=== PATIENT | male | born 1940 | race Caucasian/White ===

== ENCOUNTER 2020-05-06 14:20 | Emergency (ER) | payer OTHER ==
[2020-05-06] MEDS ORDERED: Sodium Chloride 0.9% 1000 ML 1,000 ML IV STA (14:33)
[2020-05-06 14:36] VITALS: O2SAT 100
[2020-05-06] MEDS ORDERED: Sodium Chloride 0.9% 1000 ML 1,000 ML ONE (14:42)
[2020-05-06] MEDS ORDERED: MORPHINE SULFATE 4 MG INJ IV ONE (14:59)
[2020-05-06] MEDS ORDERED: MORPHINE SULFATE 4 MG INJ ONE (15:01)
--- NOTE | 2020-05-06 15:08 | XRAY ---
Indication: Chest pain 3 days. Comparison: None Portable chest demonstrates normal heart and lungs. Bony thorax intact with mild dextroscoliosis.
[2020-05-06 15:21] LABS: Absolute Neutrophil Ct (ANC) 5.21 (1.4-6.9); BASOPHIL % 0.2 % (0.0-0.4); Basophil (Absolute #) 0.02 (0-0.4); Eosinophil % 2.2 % (0.00-5.0); Hematocrit 42.1 % (42-50); Hemoglobin 13.9 gm/dl (12.5-18.0); Lymphocyte (Absolute #) 2.85 (1.0-4.6); Lymphocytes % 31.6 % (24.0-44.0); Mean Cell Volume 91.1 fl (78-100); Mean Corpuscular Hemoglobin 30.1 pg (26-32); Mean Platelet Volume 10.8 fl (7.5-11.0); Monocyte (Absolute #) 0.75 (0.0-1.3); Monocytes % 8.3 % (0.0-12.0); Neutrophil % 57.7 % (36.0-66.0); Platelet Count 232 K/mm3 (150-450); Red Blood Count 4.62 M/mm3 (4.1-5.6); Red Cell Distribution Width 12.3 % (11.5-14.0)
--- NOTE | 2020-05-06 15:22 | ERPHSYRPT ---
- History of Present Illness Time Seen by Provider: 05/06/20 14:35 Historian: patient Exam Limitations: no limitations Patient Subjective Stated Complaint: Pt states began having chest pain on 05/04/20. Pain was relieved yesterday and returned today radiating down left ar m. Pain is intermittent. Pt denies n/v/d. Denies fever or cough. States he was notified today that he played cards with someone on 05/02/20 that tested Covid positive on 05/04/20. Triage Nursing Assessment: Pt skin pink, warm, dry. Gait steady. Respirations non-labored. Strong, regular radial pulse. Physician History: Patient is an 79-year-old white male who presents with chest pain since Saturday he had some improvement in his pain which was on and off from Saturday until today the pain came back was much worse radiates to the left arm no shortness of breath nausea vomiting diaphoresis he also has some risk factors which include hypertension and hyperlipidemia pain-free upon admission to the ER Timing/Duration: day(s) Activities at Onset: none Quality: pressure, stabbing Location: substernal Chest Pain Radiation: arm (L) Severity of Pain-Max: severe Severity of Pain-Current: severe Modifying Factors: Improves With: nothing Associated Symptoms: denies symptoms Prior Chest Pain/Cardiac Workup: heart attack Nitro Today/Relief: 0.4 mg x 1 Aspirin Treatment Today: 81 mg x 3, provided at home (Took 681 mg at home.) Allergies/Adverse Reactions: No Known Drug Allergies Allergy (Unverified 05/06/20 14:37) Home Medications: Levothyroxine Sodium 75 Mcg [Synthroid 75 Mcg] 75 mcg PO DAILY 05/06/20 [History] Travel Risk - International Travel Have you traveled outside of the country in past 3 weeks: No - Coronavirus Screening Are you exhibiting any of the following symptoms?: No Close contact with a COVID-19 positive Pt in past 14-21 Days: Yes - Review of Systems Constitutional: No Fever, No Chills Eyes: No Symptoms Ears, Nose, & Throat: No Symptoms Respiratory: No Cough, No Dyspnea Cardiac: Chest Pain, No Edema, No Syncope Abdominal/Gastrointestinal: No Abdominal Pain, No Nausea, No Vomiting, No Diarrhea Genitourinary Symptoms: No Dysuria Musculoskeletal: No Back Pain, No Neck Pain Skin: No Rash Neurological: No Dizziness, No Focal Weakness, No Sensory Changes Psychological: No Symptoms Endocrine: No Symptoms All Other Systems: Reviewed and Negative - Past Medical History Pertinent Past Medical History: Yes Cardiac History: Myocardial Infarction ([place]) Endocrine Medical History: Hypothyroidism - Past Surgical History Past Surgical History: Yes Musculoskeletal: Orthopedic Surgery Other Surgical History: Melanoma removal - Social History Smoking Status: Never smoker Drug Use: none Patient Lives Alone: Yes - Nursing Vital Signs Nursing Vital Signs: Initial Vital Signs Temperature 97.6 F 05/06/20 14:21 Pulse Rate 62 05/06/20 14:21 Respiratory Rate 16 05/06/20 14:21 Blood Pressure 196/116 05/06/20 14:21 O2 Sat by Pulse Oximetry 100 05/06/20 14:21 Pain Scale Pain Intensity 10 - Physical Exam General Appearance: moderate distress, alert Eye Exam: PERRL/EOMI, eyes nml inspection Ears, Nose, Throat Exam: normal ENT inspection, moist mucous membranes Neck Exam: normal inspection, non-tender, supple, full range of motion Respiratory Exam: normal breath sounds, lungs clear, No respiratory distress Cardiovascular Exam: regular rate/rhythm, normal heart sounds Gastrointestinal/Abdomen Exam: soft, No tenderness, No mass Back Exam: normal inspection, No CVA tenderness, No vertebral tenderness Extremity Exam: normal inspection, normal range of motion Neurologic Exam: alert, oriented x 3, cooperative, normal mood/affect, sensation nml, No motor deficits Skin Exam: normal color, warm, dry SpO2: 100 - Course Nursing assessment & vital signs reviewed: Yes EKG Interpreted by Me: RATE, Sinus Rhythm, Left [place] Deviation, Right Bundle Branch Block, Other Ordered Tests: Active Orders 24 hr Category Date Time Status EKG-ER Only STAT Care 05/06/20 14:33 Active IV Insertion STAT Care 05/06/20 14:45 Active CHEST 1 VIEW (PORTABLE) Stat Exams 05/06/20 14:33 Completed AMYLASE Stat Lab 05/06/20 14:50 Received CBC W DIFF Stat Lab 05/06/20 14:50 Received CMP Stat Lab 05/06/20 14:50 Received D-DIMER QUANTITATIVE Stat Lab 05/06/20 14:50 Received LIPASE Stat Lab 05/06/20 14:50 Received Lactic Acid Stat Lab 05/06/20 14:33 Completed TROPONIN Q3H Lab 05/06/20 14:50 Received TROPONIN Q3H Lab 05/06/20 17:45 Ordered TROPONIN Q3H Lab 05/06/20 20:45 Ordered TROPONIN Q3H Lab 05/06/20 23:45 Ordered TROPONIN Q3H Lab 05/07/20 02:45 Ordered UA W/RFX UR CULTURE Stat Lab 05/06/20 14:33 Ordered Medication Summary Generic Name Dose Route Start Last Admin Trade Name Freq PRN Reason Stop Dose Admin Sodium Chloride 1,000 mls @ 999 mls/hr 05/06/20 14:33 05/06/20 14:44 Sodium Chloride 0.9% 1000 Ml IV 05/06/20 15:33 999 mls/hr .Q1H1M STA Administration Discontinued Medications Generic Name Dose Route Start Last Admin Trade Name Freq PRN Reason Stop Dose Admin Sodium Chloride Confirm 05/06/20 14:42 Sodium Chloride 0.9% 1000 Ml Administered 05/06/20 14:43 Dose 1,000 mls @ ud .ROUTE .STK-MED ONE Morphine Sulfate 4 mg 05/06/20 14:59 05/06/20 15:09 Morphine Sulfate 4 Mg Inj IV 05/06/20 15:00 4 mg STAT ONE Administration Morphine Sulfate Confirm 05/06/20 15:01 Morphine Sulfate 4 Mg Inj Administered 05/06/20 15:02 Dose 4 mg .ROUTE .STK-MED ONE Lab/Rad Data: Laboratory Results 05/06/20 Range/Units 14:33 Lactic Acid 2.3 H (0.4-2.0) - Progress Progress: improved Air Movement: good Blood Culture(s) Obtained: No Antibiotics given: No - Departure Departure Disposition: Transfer ([facility] Dr. Gauri Corley accepting) Clinical Impression: Inferior [place] Condition: Critical Critical Care Time: Yes Critical Care Time(excluding separately billable procedures): Critical 30-74 mins
[2020-05-06 15:25] VITALS: BP 166/97; PULSE 58
[2020-05-06 15:27] LABS: ALBUMIN 4.5 g/dL (3.5-5.0); ALKALINE PHOSPHATASE 43 U/L (38-126); AMYLASE 50 U/L (30-110); ANION GAP 12.7 MEQ/L (5-15); BLOOD UREA NITROGEN 18 mg/dL (9-20); CHLORIDE 100 mmol/L (98-107); Calcium 9.5 mg/dL (8.4-10.2); Carbon Dioxide 28 mmol/L (22-30); Creatinine 1 1.02 mg/dL (0.66-1.25); EST GLOMERULAR FILTRATION RATE > 60.0 ML/MIN; Glucose 130 mg/dL (74-106); LIPASE 42 U/L (23-300); Potassium 4.4 mmol/L (3.5-5.1); SGOT/AST 35 U/L (17-59); SGPT/ALT 17 U/L (0-50); SODIUM 137 mmol/L (137-145); Total Protein 7.6 g/dL (6.3-8.2)
== END 2020-05-06 15:26 | disposition short-term general hospital (02) ==
LOC: ED 14:20
DX: I21.19 ST elevation (STEMI) myocardial infarction involving other coronary artery of inferior wall (principal); I10 Essential (primary) hypertension; E78.5 Hyperlipidemia, unspecified; E03.9 Hypothyroidism, unspecified
CPT/HCPCS: 36000; 36415; 71045; 80053; 82150; 83605; 83690; 84484; 85025; 85379; 93005; 93041; 96360; 96374; 99285; 99291; J2270

== ENCOUNTER 2021-07-04 17:09 | Emergency (ER) | payer OTHER ==
--- NOTE | 2021-07-04 17:18 | ERPHSYRPT ---
- History of Present Illness Time Seen by Provider: 07/04/21 17:17 Historian: patient Exam Limitations: no limitations Physician History: This is an 80-year-old white male patient of the [facility] in [place] who presents with 2 to 3 days of intermittent pain in his left chest that goes into his left axilla. Today, the pain was constant in his left axilla. However, upon arrival to the emergency department today the pain has completely resolved. He has no chest pain. He is not short of breath. Patient does take Brilinta. In April 2020 patient had a cardiac stent placed. He currently does not have any shortness of breath. There is a history of atrial fibrillation that is chronic and rate controlled. Patient also has a history of hypothyroidism and is taking the levothyroxine medication. Timing/Duration: today Activities at Onset: none Quality: aching (Left axilla) Location: other (Left axilla) Chest Pain Radiation: no radiation Severity of Pain-Max: mild (To moderate) Severity of Pain-Current: none Modifying Factors: Improves With: nothing Associated Symptoms: denies symptoms Prior Chest Pain/Cardiac Workup: cardiac cath, echocardiography, heart attack Nitro Today/Relief: no nitro taken today Aspirin Treatment Today: 81 mg x 4, provided by ED Allergies/Adverse Reactions: No Known Drug Allergies Allergy (Verified 07/04/21 17:19) Home Medications: Levothyroxine Sodium 75 Mcg [Synthroid 75 Mcg] 75 mcg PO DAILY 05/06/20 [History] Atorvastatin Calcium [Lipitor] 1 dose PO HS 07/04/21 [History] Ticagrelor [Brilinta] 90 mg PO BID 07/04/21 [History] Travel Risk - International Travel Have you traveled outside of the country in past 3 weeks: No - Coronavirus Screening Are you exhibiting any of the following symptoms?: No Close contact with a COVID-19 positive Pt in past 14-21 Days: No - Review of Systems Constitutional: No Symptoms Eyes: No Symptoms Ears, Nose, & Throat: No Symptoms Respiratory: No Symptoms Cardiac: Chest Pain (Left axillary) Abdominal/Gastrointestinal: No Symptoms Genitourinary Symptoms: No Symptoms Musculoskeletal: No Symptoms Skin: No Symptoms Neurological: No Symptoms Psychological: No Symptoms Endocrine: No Symptoms Hematologic/Lymphatic: No Symptoms Immunological/Allergic: No Symptoms All Other Systems: Reviewed and Negative - Past Medical History Pertinent Past Medical History: Yes Cardiac History: Myocardial Infarction ([place]) Endocrine Medical History: Hypothyroidism - Past Surgical History Past Surgical History: Yes Musculoskeletal: Orthopedic Surgery Other Surgical History: Melanoma removal - Social History Smoking Status: Never smoker Drug Use: none Patient Lives Alone: Yes - Nursing Vital Signs Nursing Vital Signs: Initial Vital Signs Temperature 98.1 F 07/04/21 17:10 Pulse Rate 89 07/04/21 17:10 Respiratory Rate 18 07/04/21 17:10 Blood Pressure 156/99 07/04/21 17:10 O2 Sat by Pulse Oximetry 99 07/04/21 17:10 Pain Scale Pain Intensity 0 - Physical Exam General Appearance: no apparent distress, alert, anxiety Eye Exam: PERRL/EOMI, eyes nml inspection Ears, Nose, Throat Exam: normal ENT inspection, moist mucous membranes Neck Exam: normal inspection, non-tender, supple, full range of motion Respiratory Exam: normal breath sounds, lungs clear, airway intact, No chest tenderness, No respiratory distress Cardiovascular Exam: irregular Gastrointestinal/Abdomen Exam: soft, normal bowel sounds, No tenderness Rectal Exam: not done, No tenderness Back Exam: normal inspection, normal range of motion, No vertebral tenderness Extremity Exam: normal inspection, normal range of motion, pelvis stable Neurologic Exam: alert, oriented x 3, cooperative, deputy k 9 II-XII nml as tested, normal mood/affect, nml cerebellar function, nml station & gait, sensation nml Skin Exam: normal color, warm Lymphatic Exam: No adenopathy SpO2 Interpretation: normal SpO2: 99 O2 Delivery: Room Air - Course Nursing assessment & vital signs reviewed: Yes EKG Interpreted by Me: RATE (87), A-fib, LAFB, Right Bundle Branch Block, Other (No acute ischemic changes on today's EKG. The prolonged [place] interval that was present on the EKG in April 2020 is no longer present. Otherwise, the EKG shows no significant change.) Ordered Tests: Active Orders 24 hr Category Date Time Status Evaluation Specialist STAT Care 07/04/21 17:25 Active EKG-ER Only STAT Care 07/04/21 17:25 Active IV Insertion STAT Care 07/04/21 17:25 Active CHEST 1 VIEW (PORTABLE) Stat Exams 07/04/21 18:23 Taken CBC W DIFF Stat Lab 07/04/21 17:30 Completed CMP Stat Lab 07/04/21 17:30 Completed D-DIMER QUANTITATIVE Stat Lab 07/04/21 17:30 Completed NT PRO BNP Stat Lab 07/04/21 17:30 Completed PROTIME WITH INR Stat Lab 07/04/21 17:30 Completed TROPONIN Q3H Lab 07/04/21 17:30 Completed TROPONIN Q3H Lab 07/04/21 19:30 Received TROPONIN Q3H Lab 07/04/21 23:30 Ordered TROPONIN Q3H Lab 07/05/21 02:30 Ordered TROPONIN Q3H Lab 07/05/21 05:30 Ordered Medication Summary Discontinued Medications Generic Name Dose Route Start Last Admin Trade Name Jocelin PRN Reason Stop Dose Admin Aspirin 324 mg 07/04/21 17:25 07/04/21 17:30 Aspirin 81 Mg Tab.Chew PO 07/04/21 17:26 243 mg STAT ONE Administration Aspirin Confirm 07/04/21 17:29 Aspirin 81 Mg Tab.Chew Administered 07/04/21 17:30 Dose 243 mg .ROUTE [email or web address] ONE Lab/Rad Data: Laboratory Result Diagrams 07/04/21 17:30 07/04/21 17:30 Laboratory Results 07/04/21 07/04/21 07/04/21 Range/Units 17:30 17:30 17:30 WBC (4.0-10.5) K/mm3 RBC (4.1-5.6) M/mm3 Hgb (12.5-18.0) gm/dl Hct (42-50) % MCV (78-100) fl MCH (26-32) pg MCHC (32-36) g/dl RDW (11.5-14.0) % Plt Count (150-450) K/mm3 MPV (7.5-11.0) fl Gran % (36.0-66.0) % Eos # (Auto) (0-0.5) Absolute Lymphs (auto) (1.0-4.6) Absolute Monos (auto) (0.0-1.3) Lymphocytes % (24.0-44.0) % Monocytes % (0.0-12.0) % Eosinophils % (0.00-5.0) % Basophils % (0.0-0.4) % Absolute Granulocytes (1.4-6.9) Basophils # (0-0.4) PT 12.6 H (9.4-12.5) SECONDS INR 1.07 (0.8-3.0) D-Dimer 295 (215-500) ng/mL Sodium 139 (137-145) mmol/L Potassium 4.5 (3.5-5.1) mmol/L Chloride 107 (98-107) mmol/L Carbon Dioxide 22 (22-30) mmol/L Anion Gap 14.9 (5-15) MEQ/L BUN 20 (9-20) mg/dL Creatinine 1.05 (0.66-1.25) mg/dL Estimated GFR > 60.0 ML/MIN Glucose 143 H (74-106) mg/dL Calcium 9.5 (8.4-10.2) mg/dL Total Bilirubin 0.80 (0.2-1.3) mg/dL AST 23 (17-59) U/L ALT 17 (0-50) U/L Alkaline Phosphatase 60 (38-126) U/L Troponin I 0.056 H* (0.000-0.034) ng/mL NT-Pro-B Natriuret Pep 1390 (0-1800) pg/mL Serum Total Protein 7.3 (6.3-8.2) g/dL Albumin 4.5 (3.5-5.0) g/dL 07/04/21 Range/Units 17:30 WBC 8.1 (4.0-10.5) K/mm3 RBC 4.49 (4.1-5.6) M/mm3 Hgb 13.7 (12.5-18.0) gm/dl Hct 41.7 L (42-50) % MCV 92.9 (78-100) fl MCH 30.5 (26-32) pg MCHC 32.9 (32-36) g/dl RDW 13.0 (11.5-14.0) % Plt Count 236 (150-450) K/mm3 MPV 11.0 (7.5-11.0) fl Gran % 65.7 (36.0-66.0) % Eos # (Auto) 0.20 (0-0.5) Absolute Lymphs (auto) 1.89 (1.0-4.6) Absolute Monos (auto) 0.66 (0.0-1.3) Lymphocytes % 23.3 L (24.0-44.0) % Monocytes % 8.1 (0.0-12.0) % Eosinophils % 2.5 (0.00-5.0) % Basophils % 0.4 (0.0-0.4) % Absolute Granulocytes 5.32 (1.4-6.9) Basophils # 0.03 (0-0.4) PT (9.4-12.5) SECONDS INR (0.8-3.0) D-Dimer (215-500) ng/mL Sodium (137-145) mmol/L Potassium (3.5-5.1) mmol/L Chloride (98-107) mmol/L Carbon Dioxide (22-30) mmol/L Anion Gap (5-15) MEQ/L BUN (9-20) mg/dL Creatinine (0.66-1.25) mg/dL Estimated GFR ML/MIN Glucose (74-106) mg/dL Calcium (8.4-10.2) mg/dL Total Bilirubin (0.2-1.3) mg/dL AST (17-59) U/L ALT (0-50) U/L Alkaline Phosphatase (38-126) U/L Troponin I (0.000-0.034) ng/mL NT-Pro-B Natriuret Pep (0-1800) pg/mL Serum Total Protein (6.3-8.2) g/dL Albumin (3.5-5.0) g/dL - Progress Progress: improved, re-examined Air Movement: good Progress Note: 07/04/21 19:09 Chest x-ray shows chronic changes and no acute cardiopulmonary issues. Medical decision making: This patient does not want to stay any longer in the hospital and does not want transfer to any facility. He realizes that his troponin level is elevated and this could mean he is having an acute myocardial infarction or could evolve into 1. He says he understands but wants to go home. I reviewed with him the benefits of inpatient evaluation management and monitoring or transfer for the same. He still wants to go home. He will sign AMA form. 07/04/21 19:11 After the patient got up to walk to use a restroom he stated he thought about it and he will stay in complete the work-up and possible transfer or admission for further monitoring. 07/04/21 19:36 Patient continues to have no chest pain or axillary pain. Patient states that he does not want to be admitted in the hospital or transferred. He will wait to see what his repeat troponin is and then make his decision. Right now, he states he is leaning towards signing out AMA. 07/04/21 19:40 Patient has decided to leave AGAINST MEDICAL ADVICE. I have discussed with him several times the reason why he should not leave and that he should be either admitted in the hospital here or transferred to the [facility] or other facility. I discussed with him the risks of leaving including and the benefits of admission or transfer to an inpatient facility. He is adamant he wants to leave. He will sign an AMA form. Blood Culture(s) Obtained: No Antibiotics given: No Counseled pt/family regarding: lab results, diagnosis, need for follow-up, rad results - Departure Departure Disposition: AMA Clinical Impression: Chest pain, Non-STEMI (non-ST elevated myocardial infarction) Condition: Stable Critical Care Time: Yes Critical Care Time(excluding separately billable procedures): Critical 30-74 mins (30 minutes) Referrals: ASTRID BERNSTEIN Jr., MD [Primary Care Provider] - Follow up/PCP as directed Additional Instructions: Return to the emergency department if your symptoms worsen.
[2021-07-04] MEDS ORDERED: BABY ASPIRIN 81 MG CHEW PO ONE (17:25)
[2021-07-04] MEDS ORDERED: BABY ASPIRIN 81 MG CHEW ONE (17:29)
[2021-07-04 17:48] LABS: Absolute Neutrophil Ct (ANC) 5.32 (1.4-6.9); Basophil (Absolute #) 0.03 (0-0.4); Eosinophil % 2.5 % (0.00-5.0); Hematocrit 41.7 % (42-50); Hemoglobin 13.7 gm/dl (12.5-18.0); Lymphocyte (Absolute #) 1.89 (1.0-4.6); Lymphocytes % 23.3 % (24.0-44.0); Mean Cell Volume 92.9 fl (78-100); Mean Corpuscular Hemoglobin 30.5 pg (26-32); Mean Corpuscular Hgb Concent. 32.9 g/dl (32-36); Monocyte (Absolute #) 0.66 (0.0-1.3); Monocytes % 8.1 % (0.0-12.0); Neutrophil % 65.7 % (36.0-66.0); Platelet Count 236 K/mm3 (150-450); Red Blood Count 4.49 M/mm3 (4.1-5.6); White Blood Count 8.1 K/mm3 (4.0-10.5)
[2021-07-04 18:04] LABS: INR 1.07 (0.8-3.0); PROTIME 12.6 SECONDS (9.4-12.5)
[2021-07-04 18:08] LABS: ALBUMIN 4.5 g/dL (3.5-5.0); ALKALINE PHOSPHATASE 60 U/L (38-126); ANION GAP 14.9 MEQ/L (5-15); BLOOD UREA NITROGEN 20 mg/dL (9-20); CHLORIDE 107 mmol/L (98-107); Calcium 9.5 mg/dL (8.4-10.2); Carbon Dioxide 22 mmol/L (22-30); Creatinine 1 1.05 mg/dL (0.66-1.25); EST GLOMERULAR FILTRATION RATE > 60.0 ML/MIN; Glucose 143 mg/dL (74-106); NT PRO BNP 1390 pg/mL (0-1800); Potassium 4.5 mmol/L (3.5-5.1); SGOT/AST 23 U/L (17-59); SGPT/ALT 17 U/L (0-50); SODIUM 139 mmol/L (137-145); Total Protein 7.3 g/dL (6.3-8.2)
[2021-07-04 19:12] VITALS: O2SAT 99
[2021-07-04 19:21] VITALS: BP 114/83; PULSE 76
--- NOTE | 2021-07-05 08:40 | XRAY ---
Indication: Chest pain and short of breath. Comparison: May 06, 2020. Portable chest again hyperinflated and clear with a few incidental tiny calcified granulomas. Heart and mediastinal structures within normal limits. Bony thorax intact again with mild osteopenia, degenerative changes, and scoliosis. Impression: Continued nonacute hyperinflated chest with chronic features.
== END 2021-07-04 19:45 | disposition left against medical advice (07) ==
LOC: ED 17:09
DX: I21.4 Non-ST elevation (NSTEMI) myocardial infarction (principal); I25.2 Old myocardial infarction; R07.9 Chest pain, unspecified; Z79.899 Other long term (current) drug therapy
CPT/HCPCS: 36000; 36415; 71045; 80053; 83880; 84484; 85025; 85379; 85610; 93005; 93041; 99284; 99291; A9270-GY